=== PATIENT | female | born 1975 | race Two or more races ===

== ENCOUNTER → 2024-05-19 | Outpatient (CLI) | payer MEDICAID, SELFPAY ==
--- NOTE | 2024-05-19 09:30 | XR_ITS ---
Examination: Upper GI series with KUB Esophagram standard Fluoroscopy 15 spot fluoroscopic films of the esophagus and stomach Exam date and time: May 19, 2024 1023 hours INDICATIONS: Preop bariatric surgery FINDINGS: Pricing Analyst AP supine abdomen moderate stool throughout the colon 15 spot fluoroscopic films of the esophagus and stomach, fluoroscopy 0.17 minutes Primary peristaltic esophageal waves No esophageal constricting lesion No gastric mass deformity or ulceration Duodenal bulb expands symmetrically, duodenal sweep and small bowel loops unremarkable IMPRESSION: Negative examination
== END | disposition home or self-care (01) ==
LOC: CDIM 09:10
PROVIDERS: PCP Physician Assistant Medical; Referring Provider Specialist; Visit Provider Specialist
DX: K21.9 Gastro-esophageal reflux disease without esophagitis (principal); Z01.818 Encounter for other preprocedural examination
CPT/HCPCS: 74240; A4699

== ENCOUNTER 2024-08-29 11:06 | Emergency (ER) | payer MEDICAID, SELFPAY ==
[2024-08-29 11:06] VITALS: BMI 40.7
[2024-08-29 12:05] VITALS: BP 133/86; PULSE 94; RESP 20; TEMP 37.1; O2SAT 100; BMI 42.1
--- NOTE | 2024-08-29 12:24 | PD.EDRME ---
Rapid Medical Screening Exam RME Arrival date/time: 08/29/24 11:06 This is a 49-year-old female that comes in with complaints of abdominal pain and back pain. Patient also complains of diarrhea that started yesterday. Patient does have a history of kidney stones. Patient currently on weight loss medications ZEPBOUND. Patient denies urinary symptoms. I have greeted and performed a focused initial assessment of this patient. Initial appropriate labs ordered at this time. A comprehensive ED assessment and evaluation of the patient and analysis of all test and completion of medical decision making process will be conducted by additional ED provider. Chief Complaint: Abdominal Pain Time Seen by Provider: 08/29/24 11:39 Vital signs: Vital Signs Temperature 98.7 F 08/29/24 12:05 Pulse Rate 94 08/29/24 12:05 Respiratory Rate 20 08/29/24 12:05 Blood Pressure 133/86 H 08/29/24 12:05 Pulse Oximetry (%) 100 08/29/24 12:05 Oxygen Delivery Method Room Air 08/29/24 12:05
--- NOTE | 2024-08-29 16:41 | PC.NURSE ---
CALLED FROM LOBBY AND NO ANSWER
--- NOTE | 2024-08-29 16:46 | PC.NURSE ---
CALLED FROM LOBBY AND NO ANSWER. PT NOT FOUND INSIDE THE E.D. OR OUTSIDE
--- NOTE | 2024-08-29 16:50 | PC.NURSE ---
CALLED FROM LOBBY AND NO ANSWER
== END 2024-08-29 16:51 | disposition left against medical advice (07) ==
PROVIDERS: Emergency Provider Emergency Medicine
DX: R10.9 Unspecified abdominal pain (principal); M54.9 Dorsalgia, unspecified; R19.7 Diarrhea, unspecified; Z53.29 Procedure and treatment not carried out because of patient's decision for other reasons
CPT/HCPCS: 80053; 80307; 81001; 81025; 83690; 85025; 99281

== ENCOUNTER 2024-10-29 20:00 | Emergency (ER) | payer MEDICAID, SELFPAY ==
[2024-10-29 20:03] VITALS: BMI 39.1
[2024-10-29 20:21] VITALS: BP 169/99; PULSE 95; RESP 18; TEMP 37; O2SAT 99
--- NOTE | 2024-10-29 20:37 | PC.NURSE ---
PT REFUSED COVID AND FLU SWAB
[2024-10-29] MEDS: DIAZEPAM 5 MG TABLET 10 MG PO (20:53)
--- NOTE | 2024-10-29 20:57 | EDNOTE_ITS ---
ED SOB =RME/HPI General Chief Complaint: Shortness of Breath/Dyspnea Stated Complaint: SOB COUGH COUGH Time Seen by Provider: 10/29/24 20:36 Arrival date/time: 10/29/24 20:00 49F with history of anxiety, asthma, and HTN presents to ED with 2 days of dry cough and SOB. There has also been two weeks of intermittent bilateral hand tingling. Patient states she had a neg COVID test at home and declines any swabs. Patient thinks this is due to her anxiety. Limitations: no limitations Related Data Home Medications ?Medication ?Instructions ?Recorded ?Confirmed lisinopril 10 mg tablet 10 mg PO QDAY 11/18/2011/18 Previous Rx's ?Medication ?Instructions ?Recorded albuterol sulfate 2.5 mg/3 mL 2.5 mg (3 mL) inhalation QID PRN 12/27/21 (0.083 %) solution for nebulization shortness of breat h or wheezing #90 mL budesonide-formoterol HFA 80 2 puff inhalation BID #10 .2 grams 12/27/21 mcg-4.5 mcg/actuation aerosol inhaler (Symbicort) hydrocodone 5 mg-acetaminophen 325 1 tab PO BID PRN pa in #10 tabs 03/30/22 mg tablet ibuprofen 800 mg tablet 800 mg PO TID PRN pain #30 t abs 03/30/22 benzonatate 100 mg capsule 100 mg PO TID #14 caps 02/01 06/24 albuterol sulfate 90 mcg/actuation 2 puff inhalation Q 6H PRN 03/15/23 aerosol inhaler (Ventolin HFA) shortness of breath or wheezing #8.5 grams ibuprofen 800 mg tablet (IBU) 800 mg PO Q8H #20 tabs 0 03/15/23 promethazine-DM 6.25 mg-15 mg/5 mL 5 ml PO Q6H PRN cou gh #118 mL 03/15/23 oral syrup Allergies Allergy/AdvReac Type Severity Reaction Status Date / Time No Known Allergies Allergy Verified 10/29/24 20:11 Review of Systems Review of Systems Systems Reviewed: All systems reviewed, normal except as documented Constitutional Constitutional: Reports system reviewed and no additional complaints, except as documented, Denies fever(s) and Denies headache(s) ENT Ears, Nose, Mouth, and Throat: Denies disequilibrium and Denies headache(s) Cardiovascular Cardiovascular: Reports system reviewed and no additional complaints, except as documented, Denies chest pain and Reports dyspnea Respiratory Respiratory: Reports system reviewed and no additional complaints, except as documented, Reports as per HPI, Reports cough and Reports dyspnea Gastrointestinal Gastrointestinal: Reports system reviewed and no additional complaints, except as documented, Denies abdominal pain, Denies nausea and Denies vomiting Musculoskeletal Musculoskeletal: Reports tingling Neurologic Neurologic: Reports system reviewed and no additional complaints, except as documented, Reports as per HPI, Denies confusion, Denies disequilibrium, Denies headache(s) and Reports tingling Psychiatric Psychiatric: Denies confusion Past Medical History Past Medical History NEUROLOGIC: Positive Migraine; Negative Neurological Disorders or Seizures CARDIAC: Positive Hypertension (no medsd); Negative Cardiac Disorders or Congestive Heart Failure RESPIRATORY: Positive Pneumonia; Negative Chronic Obstructive Pulmonary Disease (COPD) or Sleep Apnea GASTROINTESTINAL: Positive Gastrointestinal Disorders, Gall Bladder Disease and Obesity GENITOURINARY: Negative Genitourinary Disorders or Renal Disease MUSCULOSKELETAL: Positive Musculoskeletal Disorders ENDOCRINE: Negative Endocrine Disorders, Diabetes Mellitus Type 1 or Diabetes Mellitus Type 2 HEMATOLOGIC: Positive Anemia; Negative Blood Disorders PSYCHO/SOCIAL: Positive Anxiety OTHER HISTORY: Positive Shingles and Chicken Pox; Negative Hospitalization, Autoimmune Disease, Falls, Blood Transfusions, Blood Transfusion Reaction, Anesthesia Reactions, MRSA or Cancer Family History FAMILY HISTORY: Negative Family Cardiac Disorders Surgical History SURGICAL: Positive Tubal Ligation Social History SMOKING STATUS: Never smoker SUBSTANCE USE: does not use ED Exam General Limitations: Present no limitations General appearance: Present alert, in no apparent distress and anxious Head Head exam: Present atraumatic Eye Eye exam: Present normal appearance, PERRL and EOMI ENT ENT exam: Present normal exam, normal oropharynx and mucous membranes moist Neck Neck exam: Present normal inspection, full ROM and trachea midline Chest Chest inspection: Present normal inspection and symmetric chest wall rise Respiratory Respiratory exam: Present normal lung sounds bilaterally Cardiovascular Cardiovascular exam: Present regular rate, normal rhythm and normal heart sounds Abdominal Exam Abdominal exam: Present soft and normal bowel sounds Extremities Exam Extremities exam: Present normal inspection and full ROM Back Exam Back exam: Present normal inspection and full ROM Neurological Exam Neurological exam: Present alert, oriented X3 and CN II-XII intact Psychiatric Psychiatric exam: Present normal affect and normal mood Skin Skin exam: Present warm, dry, intact and normal color Course Quality Measures none Orders Category Date Time Status Bedside COVID-19 Antigen Test NOW Care 10/29/24 20:16 Active Bedside Influenza A&B Antigen Test NOW Care 10/29/24 20:16 Active Diazepam [Valium] Med 10/29/24 20:36 Discontinued 10 mg PO X1 ONE Vital Signs Vital signs: Vital Signs Temperature 98.6 F 10/29/24 20:21 Pulse Rate 95 10/29/24 20:21 Respiratory Rate 18 10/29/24 20:21 Blood Pressure 169/99 H 10/29/24 20:21 Pulse Oximetry (%) 99 10/29/24 20:21 Oxygen Delivery Method Room Air 10/29/24 20:21 O2 at 99% on RA and WNLs Shortness of Breath / Dyspnea MDM Narrative MDM Narrative:: 49F with history of anxiety, asthma, and HTN presents to ED with 2 days of dry cough and SOB. There has also been two weeks of intermittent bilateral hand tingling. Patient states she had a neg COVID test at home and declines any swabs. Patient thinks this is due to her anxiety. Physical exam reveals clear lungs and normal WOB. Patient is afebrile, alert, but anxious. Again, patient declined swabs. Patient agrees to first try Valium and then reassess. If not improvement, then will run some tests. Patient eloped prior to reassessment. Patient data External records reviewed:: [facility] previous records Clinical information provided by:: patient Social determinants that could affect healthcare access:: mental health Patient has the following chronic illnesses:: anxiety, asthma, and HTN How is presenting disease/condition affected by chronic disease/condition?: exacerbated by Evaluation data The following diagnostics were reviewed and interpreted by me:: other (specify) (none) Lab and/or radiology exams considered but not ordered:: not ordered Interpretation Summary: n/a Medications / Prescriptions Medications or Prescriptions considered but not ordered:: ordered Medication administrations:: Medication Administration History Discontinued Medications Diazepam (Diazepam 5 Mg Tablet) 10 mg PO X1 ONE Stop: 10/29/24 20:37 Last Admin: 10/29/24 20:53 Dose: 10 mg Documented By: OA above Consultations Consultation(s) initiated? (list below): No Diagnosis Shortness of Breath Differential Diagnosis: acute exacerbation of chronic obstructive airways disease, congestive heart failure, community acquired pneumonia, asthma with exacerbation, pulmonary embolism and other (anxiety) Most likely diagnosis given after review of the tests above:: dyspnea Admission Indicated Admission indicated?: not indicated Admission Request Was there a request for admission?: No Disposition Plan Disposition Plan: other (specify) (eloped) Discharge Plan Plan Patient Disposition: Elopement Prescriptions/Referrals Prescriptions/Med Rec: No Action lisinopril 10 mg Tablet 10 mg PO QDAY budesonide-formoterol [Symbicort] 80-4.5 mcg/actuation HFA aerosol inhaler 2 puff inhalation BID Qty: 10.2 0RF Rx Instructions: please take daily albuterol sulfate 2.5 mg /3 mL (0.083 %) solution for nebulization 2.5 mg inhalation QID PRN (Reason: shortness of breath or wheezing) Qty: 90 0RF ibuprofen 800 mg tablet 800 mg PO TID PRN (Reason: pain) Qty: 30 0RF hydrocodone-acetaminophen 5-325 mg tablet 1 tab PO BID MDD 10 PRN (Reason: pain) Qty: 10 0RF albuterol sulfate [Ventolin HFA] 90 mcg/actuation HFA aerosol inhaler 2 puff inhalation Q6H PRN (Reason: shortness of breath or wheezing) Qty: 8.5 0RF promethazine-DM 6.25-15 mg/5 mL syrup 5 ml PO Q6H PRN (Reason: cough) Qty: 118 0RF ibuprofen [IBU] 800 mg tablet 800 mg PO Q8H Qty: 20 0RF benzonatate 100 mg capsule 100 mg PO TID Qty: 14 0RF Referrals: No Primary/Family,Physician [Primary Care Provider] - In 1 week Problem List Clinical Impression: Dyspnea Patient/Caregiver Discharge Instructions Print Language: Welsh PA/DYNAMICS AX SOLUTION ARCHITECT Supervising Physician PA/DYNAMICS AX SOLUTION ARCHITECT Supervising Physician: Dr. Nguyen
--- NOTE | 2024-10-29 22:44 | PC.NURSE ---
nax1 at this time
--- NOTE | 2024-10-30 00:49 | PC.NURSE ---
CALLED FOR PT FROM LOBBY/OUTSIDE, NO ANSWERX2 @ [phone]
--- NOTE | 2024-10-30 00:50 | PC.NURSE ---
CALLED FOR PT FROM LOBBY/OUTSIDE, NO ANSWERX3@ [phone]
== END 2024-10-30 00:50 | disposition left against medical advice (07) ==
PROVIDERS: Emergency Provider Emergency Medicine
DX: R06.00 Dyspnea, unspecified (principal); Z53.29 Procedure and treatment not carried out because of patient's decision for other reasons
CPT/HCPCS: 99283; A9270

== ENCOUNTER 2024-11-17 05:26 | Emergency (ER) | payer MEDICAID, SELFPAY ==
[2024-11-17 05:29] VITALS: BMI 39.1
[2024-11-17 05:38] VITALS: BP 140/88; PULSE 107; RESP 18; TEMP 36.6; O2SAT 100
--- NOTE | 2024-11-17 06:49 | EDNOTE_ITS ---
<Statement entered by Krysta Guerrero MD - 11/17/24 11:55> As co-signing physician, I was present and available for consult prn. I concur with the plan and care as documented by the midlevel provider. ED Skin Abcess FB-RME/HPI General Chief complaint: Skin/Abscess/Foreign Body Stated complaint: RASH Time Seen by Provider: 11/17/24 06:20 Source: patient Arrival date/time: 11/17/24 05:26 49-year-old female with a history of a gastric bypass 2 weeks ago presents to the emergency room with a chief complaint of a rash in her abdomen. Patient denies any abdominal pain nausea vomiting. Mode of arrival: ambulatory Limitations: no limitations Related Data Home Medications ?Medication ?Instructions ?Recorded ?Confirmed lisinopril 10 mg tablet 10 mg PO QDAY 11/18/2011/18 Previous Rx's ?Medication ?Instructions ?Recorded albuterol sulfate 2.5 mg/3 mL 2.5 mg (3 mL) inhalation QID PRN 12/27/21 (0.083 %) solution for nebulization shortness of breat h or wheezing #90 mL budesonide-formoterol HFA 80 2 puff inhalation BID #10 .2 grams 12/27/21 mcg-4.5 mcg/actuation aerosol inhaler (Symbicort) hydrocodone 5 mg-acetaminophen 325 1 tab PO BID PRN pa in #10 tabs 03/30/22 mg tablet ibuprofen 800 mg tablet 800 mg PO TID PRN pain #30 t abs 03/30/22 benzonatate 100 mg capsule 100 mg PO TID #14 caps 02/01 06/24 albuterol sulfate 90 mcg/actuation 2 puff inhalation Q 6H PRN 03/15/23 aerosol inhaler (Ventolin HFA) shortness of breath or wheezing #8.5 grams ibuprofen 800 mg tablet (IBU) 800 mg PO Q8H #20 tabs 0 03/15/23 promethazine-DM 6.25 mg-15 mg/5 mL 5 ml PO Q6H PRN cou gh #118 mL 03/15/23 oral syrup Allergies Allergy/AdvReac Type Severity Reaction Status Date / Time No Known Allergies Allergy Verified 11/17/24 05:33 Review of Systems Review of Systems Systems Reviewed: All systems reviewed, normal except as documented Constitutional Constitutional: Reports system reviewed and no additional complaints, except as documented, Denies fatigue, Denies fever(s), Denies headache(s) and Denies weakness Eyes Eyes: Reports system reviewed and no additional complaints, except as documented, Denies blurry vision and Denies change in vision ENT Ears, Nose, Mouth, and Throat: Reports system reviewed and no additional complaints, except as documented, Denies otalgia, Denies headache(s), Denies nasal congestion, Denies throat swelling and Denies vertigo Cardiovascular Cardiovascular: Reports system reviewed and no additional complaints, except as documented, Denies chest pain, Denies dyspnea and Denies dyspnea on exertion Respiratory Respiratory: Reports system reviewed and no additional complaints, except as documented, Denies chest congestion, Denies cough, Denies dyspnea, Denies dyspnea on exertion and Denies wheezing Gastrointestinal Gastrointestinal: Reports system reviewed and no additional complaints, except as documented, Denies abdominal pain, Denies cramping, Denies nausea and Denies vomiting Genitourinary Genitourinary: Reports system reviewed and no additional complaints, except as documented Musculoskeletal Musculoskeletal: Reports system reviewed and no additional complaints, except as documented and Denies back pain Integumentary/Breasts Skin/Breast: Reports system reviewed and no additional complaints, except as documented and Denies wounds Neurologic Neurologic: Reports system reviewed and no additional complaints, except as documented, Denies confusion, Denies headache(s), Denies lack of coordination, Denies vertigo and Denies weakness Psychiatric Psychiatric: Reports system reviewed and no additional complaints, except as documented, Denies anxiety, Denies confusion, Denies depression, Denies paranoia, Denies suicidal ideation and Denies tactile hallucinations Endocrine Endocrine: Reports system reviewed and no additional complaints, except as documented and Denies fatigue Hematologic/Lymphatic Hematologic/Lymphatic: Reports system reviewed and no additional complaints, except as documented and Denies lymphadenopathy Allergic/Immunologic Allergic/Immunologic: Reports system reviewed and no additional complaints, except as documented, Denies throat swelling, Denies urticaria and Denies wheezing ED Exam General Limitations: Present no limitations General appearance: Present alert and in no apparent distress Head Head exam: Present atraumatic Eye Eye exam: Present normal appearance, PERRL and EOMI ENT ENT exam: Present normal exam, normal oropharynx and mucous membranes moist Neck Neck exam: Present normal inspection, full ROM and trachea midline Chest Chest inspection: Present normal inspection and symmetric chest wall rise Respiratory Respiratory exam: Present normal lung sounds bilaterally Cardiovascular Cardiovascular exam: Present regular rate, normal rhythm and normal heart sounds Abdominal Exam Abdominal exam: Present soft and normal bowel sounds; Absent distention, tenderness, guarding or rebound Extremities Exam Extremities exam: Present normal inspection and full ROM Back Exam Back exam: Present normal inspection and full ROM Neurological Exam Neurological exam: Present alert, oriented X3 and CN II-XII intact Psychiatric Psychiatric exam: Present normal affect and normal mood Skin Skin exam: Present warm, dry, intact and normal color Course Quality Measures none Orders Category Date Time Status Dexamethasone Inj [Decadron Inj] Med 11/17/24 06:29 Discontinued 10 mg IM X1 ONE DiphenhydrAMINE INJ [Benadryl Inj] Med 11/17/24 06:29 Discontinued 25 mg IM X1 ONE Famotidine [Pepcid] Med 11/17/24 06:29 Discontinued 20 mg PO X1 ONE Vital Signs Vital signs: Vital Signs Temperature 97.8 F 11/17/24 05:38 Pulse Rate 107 H 11/17/24 05:38 Respiratory Rate 18 11/17/24 05:38 Blood Pressure 140/88 H 11/17/24 05:38 Pulse Oximetry (%) 100 11/17/24 05:38 Oxygen Delivery Method Room Air 11/17/24 05:38 Skin / Abscess / Foreign Body MDM Narrative MDM Narrative:: 49-year-old female with a history of a gastric bypass 2 weeks ago presents to the emergency room with a chief complaint of a rash in her abdomen. Patient denies any abdominal pain nausea vomiting. Patient is hemodynamically stable and in no apparent distress. Lung sounds are clear bilaterally there is no stridor or any abnormal breathing. There is no tongue swelling lip swelling or any difficulty breathing. Patient's O2 saturation is at 100% on room air Patient has a rash in her abdomen. Patient states she believes it is possibly due to a cream that she started using for itching. Medication was ordered for the patient but the patient eloped prior to final disposition Patient data External records reviewed:: [facility] previous records Clinical information provided by:: patient Social determinants that could affect healthcare access:: none Patient has the following chronic illnesses:: No chronic How is presenting disease/condition affected by chronic disease/condition?: no chronic disease Evaluation data The following diagnostics were reviewed and interpreted by me:: lab results and radiology exam(s) Lab and/or radiology exams considered but not ordered:: Labs and radiology exams considered and ordered Interpretation Summary: N/A Medications / Prescriptions Medications or Prescriptions considered but not ordered:: Medication ordered Medication administrations:: Medication Administration History Discontinued Medications Dexamethasone Sodium Phosphate (Dexamethasone Sod Phos Inj 10 Mg/Ml Vial) 10 mg IM X1 ONE Stop: 11/17/24 06:30 Last Admin: 11/17/24 07:04 Dose: Not Given Documented By: CAMRON Non-Admin Reason: Other, see note Comments: ELOPED Diphenhydramine HCl (Diphenhydramine Inj 50 Mg/Ml Vial) 25 mg IM X1 ONE Stop: 11/17/24 06:30 Last Admin: 11/17/24 07:05 Dose: Not Given Documented By: CAMRON Non-Admin Reason: Other, see note Comments: ELOPED Famotidine (Famotidine 20 Mg Tablet) 20 mg PO X1 ONE Stop: 11/17/24 06:30 Last Admin: 11/17/24 07:05 Dose: Not Given Documented By: CAMRON Non-Admin Reason: Other, see note Medication ordered Consultations Consultation(s) initiated? (list below): No Diagnosis Skin/Abscess Differential Diagnosis: allergic reaction to drug, contact dermatitis and other (Allergic reaction) Most likely diagnosis given after review of the tests above:: Allergic reaction Admission Indicated Admission indicated?: not indicated Admission Request Was there a request for admission?: No Disposition Plan Disposition Plan: Discharge Discharge Attestation Discharge Attestation: The patient and all family members were given an opportunity to ask questions and understood the discharge instructions. Discharge instructions specifically effects, indications for sooner follow up or return to the emergency department, and the expected course of current diagnosis. Patient condition: Stable Discharge Plan Plan Patient Disposition: Elopement Discharge Disposition comment: Stable Prescriptions/Referrals Prescriptions/Med Rec: No Action lisinopril 10 mg Tablet 10 mg PO QDAY budesonide-formoterol [Symbicort] 80-4.5 mcg/actuation HFA aerosol inhaler 2 puff inhalation BID Qty: 10.2 0RF Rx Instructions: please take daily albuterol sulfate 2.5 mg /3 mL (0.083 %) solution for nebulization 2.5 mg inhalation QID PRN (Reason: shortness of breath or wheezing) Qty: 90 0RF ibuprofen 800 mg tablet 800 mg PO TID PRN (Reason: pain) Qty: 30 0RF hydrocodone-acetaminophen 5-325 mg tablet 1 tab PO BID MDD 10 PRN (Reason: pain) Qty: 10 0RF albuterol sulfate [Ventolin HFA] 90 mcg/actuation HFA aerosol inhaler 2 puff inhalation Q6H PRN (Reason: shortness of breath or wheezing) Qty: 8.5 0RF promethazine-DM 6.25-15 mg/5 mL syrup 5 ml PO Q6H PRN (Reason: cough) Qty: 118 0RF ibuprofen [IBU] 800 mg tablet 800 mg PO Q8H Qty: 20 0RF benzonatate 100 mg capsule 100 mg PO TID Qty: 14 0RF Problem List Clinical Impression: Allergic reaction Patient/Caregiver Discharge Instructions Print Language: Bulgarian
== END 2024-11-17 07:01 | disposition left against medical advice (07) ==
LOC: SERX 07:29
PROVIDERS: Emergency Provider Nurse Practitioner Family
DX: R21 Rash and other nonspecific skin eruption (principal); Z98.84 Bariatric surgery status
CPT/HCPCS: 99281

== ENCOUNTER 2024-11-17 08:03 | Emergency (ER) | payer MEDICAID, SELFPAY ==
[2024-11-17 08:13] VITALS: BP 144/88; PULSE 89; RESP 17; TEMP 36.4; O2SAT 100
--- NOTE | 2024-11-17 08:43 | EDNOTE_ITS ---
<Statement entered by Krysta Guerrero MD - 11/17/24 11:56> As co-signing physician, I was present and available for consult prn. I concur with the plan and care as documented by the midlevel provider. ED Skin Abcess FB-RME/HPI General Chief complaint: Skin/Abscess/Foreign Body Stated complaint: Rash X 1 week Time Seen by Provider: 11/17/24 08:22 Arrival date/time: 11/17/24 08:03 49-year-old female with a history of a gastric bypass 2 weeks ago presents to the emergency room with a chief complaint of a rash in her abdomen x 1 week. Patient denies any abdominal pain nausea vomiting. Limitations: no limitations Related Data Home Medications ?Medication ?Instructions ?Recorded ?Confirmed lisinopril 10 mg tablet 10 mg PO QDAY 11/18/2011/18 Previous Rx's ?Medication ?Instructions ?Recorded albuterol sulfate 2.5 mg/3 mL 2.5 mg (3 mL) inhalation QID PRN 12/27/21 (0.083 %) solution for nebulization shortness of breat h or wheezing #90 mL budesonide-formoterol HFA 80 2 puff inhalation BID #10 .2 grams 12/27/21 mcg-4.5 mcg/actuation aerosol inhaler (Symbicort) hydrocodone 5 mg-acetaminophen 325 1 tab PO BID PRN pa in #10 tabs 03/30/22 mg tablet ibuprofen 800 mg tablet 800 mg PO TID PRN pain #30 t abs 03/30/22 benzonatate 100 mg capsule 100 mg PO TID #14 caps 02/01 06/24 albuterol sulfate 90 mcg/actuation 2 puff inhalation Q 6H PRN 03/15/23 aerosol inhaler (Ventolin HFA) shortness of breath or wheezing #8.5 grams ibuprofen 800 mg tablet (IBU) 800 mg PO Q8H #20 tabs 0 03/15/23 promethazine-DM 6.25 mg-15 mg/5 mL 5 ml PO Q6H PRN cou gh #118 mL 03/15/23 oral syrup Allergies Allergy/AdvReac Type Severity Reaction Status Date / Time No Known Allergies Allergy Verified 11/17/24 08:08 Review of Systems Review of Systems Systems Reviewed: All systems reviewed, normal except as documented Constitutional Constitutional: Reports system reviewed and no additional complaints, except as documented, Denies fatigue, Denies fever(s), Denies headache(s) and Denies weakness Eyes Eyes: Reports system reviewed and no additional complaints, except as documented, Denies blurry vision, Denies change in vision and Denies itchy eyes ENT Ears, Nose, Mouth, and Throat: Reports system reviewed and no additional complaints, except as documented, Denies otalgia, Denies headache(s), Denies lip swelling, Denies nasal congestion, Denies throat swelling, Denies tongue swelling and Denies vertigo Cardiovascular Cardiovascular: Reports system reviewed and no additional complaints, except as documented, Denies chest pain, Denies dyspnea and Denies dyspnea on exertion Respiratory Respiratory: Reports system reviewed and no additional complaints, except as documented, Denies chest congestion, Denies cough, Denies dyspnea, Denies dyspnea on exertion and Denies wheezing Gastrointestinal Gastrointestinal: Reports system reviewed and no additional complaints, except as documented, Denies abdominal pain, Denies cramping, Denies nausea and Denies vomiting Genitourinary Genitourinary: Reports system reviewed and no additional complaints, except as d ocumented Musculoskeletal Musculoskeletal: Reports system reviewed and no additional complaints, except as documented and Denies back pain Integumentary/Breasts Skin/Breast: Reports system reviewed and no additional complaints, except as documented, Reports pruritus, Reports rash and Denies wounds Neurologic Neurologic: Reports system reviewed and no additional complaints, except as documented, Denies confusion, Denies headache(s), Denies lack of coordination, Denies vertigo and Denies weakness Psychiatric Psychiatric: Reports system reviewed and no additional complaints, except as documented, Denies anxiety, Denies confusion, Denies depression, Denies paranoia, Denies suicidal ideation and Denies tactile hallucinations Endocrine Endocrine: Reports system reviewed and no additional complaints, except as documented and Denies fatigue Hematologic/Lymphatic Hematologic/Lymphatic: Reports system reviewed and no additional complaints, except as documented and Denies lymphadenopathy Allergic/Immunologic Allergic/Immunologic: Reports system reviewed and no additional complaints, except as documented, Denies itchy eyes, Denies lip swelling, Denies throat swelling, Denies tongue swelling, Denies urticaria and Denies wheezing Past Medical History Past Medical History NEUROLOGIC: Positive Migraine; Negative Neurological Disorders or Seizures CARDIAC: Positive Hypertension (no medsd); Negative Cardiac Disorders or Congestive Heart Failure RESPIRATORY: Positive Pneumonia; Negative Chronic Obstructive Pulmonary Disease (COPD) or Sleep Apnea GASTROINTESTINAL: Positive Gastrointestinal Disorders, Gall Bladder Disease and Obesity GENITOURINARY: Negative Genitourinary Disorders or Renal Disease MUSCULOSKELETAL: Positive Musculoskeletal Disorders ENDOCRINE: Negative Endocrine Disorders, Diabetes Mellitus Type 1 or Diabetes Mellitus Type 2 HEMATOLOGIC: Positive Anemia; Negative Blood Disorders PSYCHO/SOCIAL: Positive Anxiety OTHER HISTORY: Positive Shingles and Chicken Pox; Negative Hospitalization, Autoimmune Disease, Falls, Blood Transfusions, Blood Transfusion Reaction, Anesthesia Reactions, MRSA or Cancer Family History FAMILY HISTORY: Negative Family Cardiac Disorders Surgical History SURGICAL: Positive Tubal Ligation Social History SMOKING STATUS: Never smoker SUBSTANCE USE: does not use ED Exam General Limitations: Present no limitations General appearance: Present alert and in no apparent distress Head Head exam: Present atraumatic Eye Eye exam: Present normal appearance, PERRL and EOMI ENT ENT exam: Present normal exam, normal oropharynx and mucous membranes moist Neck Neck exam: Present normal inspection, full ROM and trachea midline Chest Chest inspection: Present normal inspection and symmetric chest wall rise Respiratory Respiratory exam: Present normal lung sounds bilaterally; Absent respiratory distress, wheezes, stridor, accessory muscle use or prolonged expiratory phase Cardiovascular Cardiovascular exam: Present regular rate, normal rhythm and normal heart sounds Abdominal Exam Abdominal exam: Present soft and normal bowel sounds Extremities Exam Extremities exam: Present normal inspection and full ROM Back Exam Back exam: Present normal inspection and full ROM Neurological Exam Neurological exam: Present alert, oriented X3 and CN II-XII intact Psychiatric Psychiatric exam: Present normal affect and normal mood Skin Skin exam: Present warm, dry, intact, normal color and rash Expanded Skin Exam Type of lesion: Present rash Distribution: Present abdomen Description: Present erythematous; Absent tenderness or swelling Course Quality Measures none Orders Category Date Time Status DiphenhydrAMINE INJ [Benadryl Inj] Med 11/17/24 08:22 Discontinued 25 mg IM X1 ONE Famotidine [Pepcid] Med 11/17/24 08:22 Discontinued 20 mg PO X1 ONE Vital Signs Vital signs: Vital Signs Temperature 97.6 F 11/17/24 08:13 Pulse Rate 89 11/17/24 08:13 Respiratory Rate 17 11/17/24 08:13 Blood Pressure 144/88 H 11/17/24 08:13 Pulse Oximetry (%) 100 11/17/24 08:13 Oxygen Delivery Method Room Air 11/17/24 08:13 Skin / Abscess / Foreign Body MDM Narrative MDM Narrative:: 49-year-old female with a history of a gastric bypass 2 weeks ago presents to the emergency room with a chief complaint of a rash in her abdomen. Patient denies any abdominal pain nausea vomiting. Patient is hemodynamically stable and in no apparent distress. Lung sounds are clear bilaterally there is no stridor or any abnormal breathing. There is no tongue swelling lip swelling or any difficulty breathing. Patient's O2 saturation is at 100% on room air Patient has a rash in her abdomen. Patient states she believes it is possibly due to a cream that she started using for itching. Antihistamines were given and the patient was reevaluated in 45 minutes with improvement to her itchiness Patient eloped prior to final disposition Patient data External records reviewed:: [facility] previous records Clinical information provided by:: patient Social determinants that could affect healthcare access:: none Patient has the following chronic illnesses:: No chronic illness How is presenting disease/condition affected by chronic disease/condition?: no chronic disease Evaluation data The following diagnostics were reviewed and interpreted by me:: lab results and radiology exam(s) Lab and/or radiology exams considered but not ordered:: Labs and radiology exams considered and ordered Interpretation Summary: N/A Medications / Prescriptions Medications or Prescriptions considered but not ordered:: Medication given Medication administrations:: Medication Administration History Discontinued Medications Diphenhydramine HCl (Diphenhydramine Inj 50 Mg/Ml Vial) 25 mg IM X1 ONE Stop: 11/17/24 08:23 Last Admin: 11/17/24 09:10 Dose: 25 mg Documented By: Famotidine (Famotidine 20 Mg Tablet) 20 mg PO X1 ONE Stop: 11/17/24 08:23 Last Admin: 11/17/24 09:08 Dose: 20 mg Documented By: Medication given Consultations Consultation(s) initiated? (list below): No Diagnosis Skin/Abscess Differential Diagnosis: contact dermatitis and other (Allergic reaction) Most likely diagnosis given after review of the tests above:: Allergic reaction Admission Indicated Admission indicated?: not indicated Admission Request Was there a request for admission?: No Disposition Plan Disposition Plan: Discharge Discharge Attestation Discharge Attestation: The patient and all family members were given an opportunity to ask questions and understood the discharge instructions. Discharge instructions specifically effects, indications for sooner follow up or return to the emergency department, and the expected course of current diagnosis. Patient condition: Stable Discharge Plan Plan Patient Disposition: Elopement Discharge Disposition comment: Stable Prescriptions/Referrals Prescriptions/Med Rec: No Action lisinopril 10 mg Tablet 10 mg PO QDAY budesonide-formoterol [Symbicort] 80-4.5 mcg/actuation HFA aerosol inhaler 2 puff inhalation BID Qty: 10.2 0RF Rx Instructions: please take daily albuterol sulfate 2.5 mg /3 mL (0.083 %) solution for nebulization 2.5 mg inhalation QID PRN (Reason: shortness of breath or wheezing) Qty: 90 0RF ibuprofen 800 mg tablet 800 mg PO TID PRN (Reason: pain) Qty: 30 0RF hydrocodone-acetaminophen 5-325 mg tablet 1 tab PO BID MDD 10 PRN (Reason: pain) Qty: 10 0RF albuterol sulfate [Ventolin HFA] 90 mcg/actuation HFA aerosol inhaler 2 puff inhalation Q6H PRN (Reason: shortness of breath or wheezing) Qty: 8.5 0RF promethazine-DM 6.25-15 mg/5 mL syrup 5 ml PO Q6H PRN (Reason: cough) Qty: 118 0RF ibuprofen [IBU] 800 mg tablet 800 mg PO Q8H Qty: 20 0RF benzonatate 100 mg capsule 100 mg PO TID Qty: 14 0RF Referrals: Charmaine Reid PA-C [Primary Care Provider] - In 1 week Problem List Clinical Impression: Allergic reaction Patient/Caregiver Discharge Instructions Education Materials: ED Medicine Reaction: Allergic Print Language: [place]
[2024-11-17] MEDS: FAMOTIDINE 20 MG TABLET PO (09:08)
== END 2024-11-17 09:25 | disposition left against medical advice (07) ==
LOC: SERX 08:33
PROVIDERS: Emergency Provider Nurse Practitioner Family; PCP Physician Assistant Medical
DX: R21 Rash and other nonspecific skin eruption (principal); Z53.29 Procedure and treatment not carried out because of patient's decision for other reasons
CPT/HCPCS: 99283; J1200; A9270